=== PATIENT | female | born 2000 | race Two or more races ===

== ENCOUNTER 2022-12-21 16:58 | Emergency (ER) | payer SELFPAY ==
[~2022-12-21] VITALS: Ht 160 cm; Wt 65.6 kg
[2022-12-21 17:10] VITALS: BP 135/87
[2022-12-21 18:05] LABS: Basophils # (auto) 0 10 ^3/uL (0-0.2); Basophils % (auto) 0.3 % (0.0-2.0); Eosinophils # (auto) 0.1 10 ^3/uL (0-0.8); Eosinophils % (auto) 0.9 % (0.0-7.0); Hematocrit 39.7 % (36.0-46.0); Hemoglobin 13.5 g/dL (12.2-16.2); Lymphocytes % (auto) 22.2 % (10.0-50.0); Mean Corpuscular Hemoglobin 30.2 pg (28.0-32.0); Mean Corpuscular Volume 88.9 fL (80.0-100.0); Monocytes # (auto) 0.8 10 ^3/uL (0-1.3); Monocytes % (auto) 9.3 % (0.0-12.0); Neutrophils % (auto) 67.3 % (37.0-80.0); Nucleated Red Blood Cells % 0.1 %; Red Blood Cells 4.47 10^6/uL (4.0-5.20); Red Cell Distribution Width 15.4 % (11.8-14.3)
[2022-12-21 21:57] LABS: Urine Bacteria NONE SEEN /hpf (None Seen); Urine Blood Negative /uL (Negative); Urine Specific Gravity 1.011 (1.001-1.035); Urine WBC <1 /hpf (0 - 5)
[2022-12-22] MEDS ORDERED: PREN27TA7 OR (05:26)
[2022-12-22] MEDS ORDERED: NITR-87 PO (05:26)
== END 2022-12-22 05:01 | disposition left against medical advice (07) ==
LOC: EDBD 16:58 → ER 16:58
DX: O23.42 Unspecified infection of urinary tract in pregnancy, second trimester (principal); O26.891 Other specified pregnancy related conditions, first trimester; R10.2 Pelvic and perineal pain; N39.0 Urinary tract infection, site not specified; Z3A.14 14 weeks gestation of pregnancy
CPT/HCPCS: 36415; 76801; 81001; 84702; 85025